=== PATIENT | male | born 1990 | race Caucasian/White ===

== ENCOUNTER 2018-08-07 11:29 | Emergency (ER) | payer BC, MEDICAID ==
[~2018-08-07] VITALS: Ht 180.3 cm; Wt 79.6 kg
[2018-08-07 11:50] VITALS: BP 130/64
[2018-08-07] MEDS ORDERED: cefTRIAXone SOD 1,000 MG VL IM ONE (13:30)
[2018-08-07] MEDS ORDERED: IBUPROFEN 800 MG TAB PO ONE (13:30)
== END 2018-08-07 15:21 | disposition home or self-care (01) ==
LOC: ER 11:29
DX: S80.861A Insect bite (nonvenomous), right lower leg, initial encounter (principal); L03.115 Cellulitis of right lower limb; W57.XXXA Bitten or stung by nonvenomous insect and other nonvenomous arthropods, initial encounter; Y93.89 Activity, other specified; Y99.8 Other external cause status; Y92.89 Other specified places as the place of occurrence of the external cause
CPT/HCPCS: 73590; 96372; 99283; J0696